=== PATIENT | male | born 1950 | race Hispanic/Latino ===

== ENCOUNTER 2016-12-15 16:49 | Emergency (ER) | payer MEDICARE ==
[2016-12-15 20:23] LABS: Basophils % (Auto) 0.5 % (0.0-1.8); Eosinophils % (Auto) 2.4 % (0.0-4.3); Hematocrit 46.6 % (35.5-45.6); Hemoglobin 14.6 gm/dl (11.8-15.2); Mean Corpuscular HGB Conc 31 % (32-34); Mean Corpuscular Hemoglobin 28 pg (28-32); Mean Corpuscular Volume 90 fl (84-94); Platelet Count 221 K/mm3 (140-440); Red Blood Count 5.16 M/mm3 (3.65-5.03); Red Cell Distribution Width 15.1 % (13.2-15.2); White Blood Count 11.7 K/mm3 (4.5-11.0)
[2016-12-15 20:41] LABS: Alanine Aminotransferase 22 units/L (7-56); Albumin 3.3 g/dL (3.9-5); Albumin/Globulin Ratio 0.8 %; Alkaline Phosphatase 81 units/L (35-129); Anion Gap 14 mmol/L; BUN/Creatinine Ratio 13.33; Bilirubin,Total 0.6 mg/dL (0.1-1.2); Blood Urea Nitrogen 12 mg/dL (9-20); Calcium 9.1 mg/dL (8.4-10.2); Carbon Dioxide 30 mmol/L (22-30); Chloride 100.4 mmol/L (98-107); Glucose 98 mg/dL (75-100); Lipase 27 units/L (13-60); Potassium 4.3 mmol/L (3.6-5.0); Sodium 140 mmol/L (137-145); Total Protein 7.2 g/dL (6.3-8.2)
[2016-12-15 21:07] LABS: Bilirubin,Urine NEG (Negative); Blood,Urine SM (Negative); Ketones,Urine NEG (Negative); Leukocyte Esterase,Urine NEG (Negative); Mucus,Urine FEW /HPF; Nitrite,Urine NEG (Negative); Protein,Urine <15 mg/dL mg/dL (Negative)
--- NOTE | 2016-12-16 04:18 | Emergency Department Report ---
ED Abdominal Pain HPI - General Chief Complaint: Abdominal Pain Stated Complaint: SEVERE ABD PAIN/SOB Time Seen by Provider: 12/16/16 03:58 Source: patient Mode of arrival: Ambulatory Limitations: No Limitations - History of Present Illness Initial Comments: Patient is a 66-year-old male with multiple medical problems presenting to the ER for abdominal pain. Patient reports the pain was sharp, constant, a 10 out of 10, and lasted for 5 hours. Currently patient reports the pain is a 1 out of 10. Otherwise no fevers, chills, MADRIGAL, vomiting, CP, SOB, trauma, travel, or sick, contacts. Pt is eating normally and having BM's. Pt has had a cholecystectomy in the past. MD Complaint: abdominal pain -: Sudden, hour(s) (5) Location: diffuse Radiation: none Migration to: no migration Severity: severe (Now has resolved) Severity scale (0 -10): 0 Quality: aching Consistency: constant Improves With: nothing Worsens With: nothing Associated Symptoms: nausea - Related Data Home Medications Medication Instructions Recorded Confirmed Last Taken Claritin mg PO DAILY 10/25/16 Unknown Cozaar mg PO DAILY 10/25/16 Unknown Omeprazole mg PO DAILY 10/25/16 Unknown traMADol mg PO Q6H PRN 10/25/16 Unknown Previous Rx's Medication Instructions Recorded Last Taken Type Aspirin 81 mg PO QDAY #30 tab.chew 10/25/16 Unknown Rx AtorvaSTATin [Lipitor] 40 mg PO DAILY #30 tablet 10/25/16 Unknown Rx Carvedilol [Coreg] 6.25 mg PO BID #60 tablet 10/25/16 Unknown Rx Allergies Allergy/AdvReac Type Severity Reaction Status Date / Time acetaminophen Allergy Unknown Verified 10/25/16 02:25 doxycycline Allergy Unknown Verified 10/25/16 02:25 ibuprofen Allergy Unknown Verified 12/15/16 19:22 orange juice Allergy Unknown Verified 12/15/16 19:22 peppermint Allergy Unknown Verified 12/15/16 19:22 ED Review of Systems ROS: Stated complaint: SEVERE ABD PAIN/SOB Other details as noted in HPI Comment: All other systems reviewed and negative ED Past Medical Hx - Past Medical History Hx Hypertension: Yes Hx Heart Attack/AMI: Yes (S/P stents x 2) Hx Congestive Heart Failure: No Hx Deep Vein Thrombosis: No Hx Pulmonary Embolism: No Hx Sickle Cell Disease: No Hx Arthritis: No Hx Asthma: Yes Hx COPD: No Hx Tuberculosis: No Hx HIV: No Additional medical history: Cardiac stents X2, morbid obesity - Surgical History Hx Coronary Stent: Yes (X2) Hx Pacemaker: No Hx Internal Defibrillator: No Hx Cholecystectomy: Yes Additional Surgical History: Tonsilectomy, Back Surgery - Social History Smoking Status: Never Smoker - Medications Home Medications: Home Medications Medication Instructions Recorded Confirmed Last Taken Type Aspirin 81 mg PO QDAY #30 tab.chew 10/25/16 Unknown Rx AtorvaSTATin [Lipitor] 40 mg PO DAILY #30 tablet 10/25/16 Unknown Rx Carvedilol [Coreg] 6.25 mg PO BID #60 tablet 10/25/16 Unknown Rx Claritin mg PO DAILY 10/25/16 Unknown History Cozaar mg PO DAILY 10/25/16 Unknown History Omeprazole mg PO DAILY 10/25/16 Unknown History traMADol mg PO Q6H PRN 10/25/16 Unknown History ED Physical Exam - General Limitations: No Limitations, Other (Morbidly obese) General appearance: alert, in no apparent distress - Head Head exam: Present: atraumatic, normocephalic - Eye Eye exam: Present: normal appearance - ENT ENT exam: Present: mucous membranes moist - Neck Neck exam: Present: normal inspection - Respiratory Respiratory exam: Present: normal lung sounds bilaterally. Absent: respiratory distress - Cardiovascular Cardiovascular Exam: Present: regular rate, normal rhythm. Absent: systolic murmur, diastolic murmur, rubs, gallop - GI/Abdominal GI/Abdominal exam: Present: soft, tenderness (mild diffuse), normal bowel sounds. Absent: distended, guarding, rebound, rigid, hyperactive bowel sounds, hypoactive bowel sounds, mass, pulsatile mass, hernia - Rectal Rectal exam: Present: deferred - Extremities Exam Extremities exam: Present: normal inspection - Back Exam Back exam: Present: normal inspection - Neurological Exam Neurological exam: Present: alert, oriented X3 - Psychiatric Psychiatric exam: Present: normal affect, normal mood - Skin Skin exam: Present: warm, dry, intact, normal color. Absent: rash ED Course Vital Signs 12/15/16 12/16/16 19:23 01:35 Temperature 98.3 F 97.9 F Pulse Rate 84 61 Respiratory 18 18 Rate Blood Pressure 184/100 161/92 O2 Sat by Pulse 95 96 Oximetry ED Medical Decision Making - Lab Data Result diagrams: 12/15/16 19:56 04/17/17 19:56 - Medical Decision Making Results discussed with the patient. Pt reports the pain has subsided. I discussed with the patient, given his current state and bloodwork I do not want to CT scan his abdomen at this time. Pt agreed. Instructed the patient to return to the ED if his symptoms return, otherwise follow up with PMD Critical care attestation.: If time is entered above; I have spent that time in minutes in the direct care of this critically ill patient, excluding procedure time. ED Disposition Clinical Impression: Abdominal pain Disposition: DISCHARGED TO HOME OR SELFCARE Is pt being admited?: No Condition: Stable Instructions: Acute Abdominal Pain (ED) Referrals: ELAN HENDRICKSON MD [Primary Care Provider] - 3-5 Days
[2016-12-16 05:26] VITALS: BP 131/75
== END 2016-12-16 05:35 | disposition home or self-care (01) ==
LOC: ED 16:49
DX: R10.84 Generalized abdominal pain (principal); I10 Essential (primary) hypertension; I25.2 Old myocardial infarction; J45.909 Unspecified asthma, uncomplicated; E66.01 Morbid (severe) obesity due to excess calories; Z88.6 Allergy status to analgesic agent; Z88.8 Allergy status to other drugs, medicaments and biological substances; Z79.4 Long term (current) use of insulin; Z91.018 Allergy to other foods
CPT/HCPCS: 36415; 80053; 81001; 83690; 85025; 99283

== ENCOUNTER 2017-06-05 13:18 | Inpatient (IN) | payer MEDICARE ==
[2017-06-05 13:47] LABS: Basophils % (Auto) 0.6 % (0.0-1.8); Eosinophils % (Auto) 1.5 % (0.0-4.3); Hematocrit 39.5 % (35.5-45.6); Hemoglobin 12.7 gm/dl (11.8-15.2); Mean Corpuscular HGB Conc 32 % (32-34); Mean Corpuscular Hemoglobin 29 pg (28-32); Mean Corpuscular Volume 90 fl (84-94); Platelet Count 191 K/mm3 (140-440); Red Blood Count 4.38 M/mm3 (3.65-5.03); Red Cell Distribution Width 14.6 % (13.2-15.2); White Blood Count 10.4 K/mm3 (4.5-11.0)
--- NOTE | 2017-06-05 14:08 | XRay Report ---
AP CHEST: HISTORY: Difficulty in breathing There is poor inspiration. Mild cardiomegaly and central pulmonary venous congestion are suspected which appear to be new since 04/25/17. Small left pleural effusion could be present. Otherwise the lungs are clear. IMPRESSION: Consider mild volume overload.
[2017-06-05 14:10] LABS: Anion Gap 18 mmol/L; BUN/Creatinine Ratio 20; Blood Urea Nitrogen 18 mg/dL (9-20); Calcium 8.9 mg/dL (8.4-10.2); Carbon Dioxide 26 mmol/L (22-30); Chloride 100.6 mmol/L (98-107); Glucose 95 mg/dL (75-100); Potassium 3.8 mmol/L (3.6-5.0); Sodium 141 mmol/L (137-145)
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
[2017-06-05 19:37] LABS: ABG Base Excess 3.1 mmol/L (-2.0-3.0); ABG HCO3 29.4 mmol/L (20.0-26.0); ABG Oxygen Saturation 95.5 % (95.0-99.0); ABG PCO2 51.8 mm Hg; ABG PH 7.372 pH Units (7.350-7.450); ABG PO2 78.3 mm Hg (80.0-90.0)
[2017-06-05 20:05] LABS: Partial Thromboplastin Time 26.4 Sec. (24.2-36.6)
[2017-06-05 20:13] LABS: Albumin 3.6 g/dL (3.9-5); Albumin/Globulin Ratio 1.2 %; Bilirubin,Direct 0.2 mg/dL (0-0.2); Bilirubin,Indirect 1.2 mg/dL; Bilirubin,Total 1.4 mg/dL (0.1-1.2); Total Protein 6.6 g/dL (6.3-8.2)
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
[2017-06-05] MEDS ORDERED: PERCOCET 5/325 PO PRN (21:25)
[2017-06-05] MEDS ORDERED: TYLENOL PO PRN (21:25)
[2017-06-05] MEDS ORDERED: DULCOLAX PR PRN (21:25)
[2017-06-05] MEDS ORDERED: ZOFRAN IV PRN (21:25)
[2017-06-05] MEDS ORDERED: MILK OF MAGNESIA PO PRN (21:25)
[2017-06-05] MEDS ORDERED: MORPHINE IV PRN (21:25)
[2017-06-05] MEDS ORDERED: K-DUR PO ONE (22:22)
[2017-06-05] MEDS ORDERED: LASIX IV ONE (23:00)
[2017-06-05] MEDS: NIZORAL TP SCH (23:45)
[2017-06-05] MEDS: COREG PO SCH (23:45)
[2017-06-06] MEDS ORDERED: DUONEB *Not for PRN Use IH SCH (02:00)
[2017-06-06] MEDS: DUONEB *Not for PRN Use IH SCH ×4 (02:10→20:23)
[2017-06-06 04:37] LABS: Basophils % (Auto) 0.4 % (0.0-1.8); Eosinophils % (Auto) 2.6 % (0.0-4.3); Hematocrit 39.2 % (35.5-45.6); Mean Corpuscular HGB Conc 33 % (32-34); Mean Corpuscular Hemoglobin 30 pg (28-32); Mean Corpuscular Volume 89 fl (84-94); Platelet Count 184 K/mm3 (140-440); Red Blood Count 4.38 M/mm3 (3.65-5.03); Red Cell Distribution Width 14.8 % (13.2-15.2); White Blood Count 8.6 K/mm3 (4.5-11.0)
--- NOTE | 2017-06-06 09:22 | Consultation ---
History of Present Illness Consult date: 06/06/17 Requesting physician: WATSON GARZA Consult reason: shortness of breath Past History Past Medical History: arthritis, CAD, COPD, heart failure, hypertension, hyperlipidemia. denies: dialysis, DVT, ESRD, GERD Past Surgical History: Other (back surgery cervical radiculopathy tonsillectomy.) Social history: , lives with family, smoking, full code. denies: alcohol abuse, prescription drug abuse, IV drug use Family history: hypertension Medications and Allergies Allergies Allergy/AdvReac Type Severity Reaction Status Date / Time acetaminophen Allergy Unknown Verified 04/19/17 13:21 doxycycline Allergy Unknown Verified 04/19/17 13:21 ibuprofen Allergy Unknown Verified 04/19/17 13:21 orange juice Allergy Unknown Verified 04/19/17 13:21 peppermint Allergy Unknown Verified 04/19/17 13:21 scallops Allergy Unknown Verified 04/19/17 13:21 shrimp Allergy Unknown Verified 04/19/17 13:21 Home Medications Medication Instructions Recorded Confirmed Last Taken Type Aspirin 81 mg PO QDAY #30 tab.chew 10/25/16 06/05/17 06/04/17 Rx AtorvaSTATin [Lipitor] 40 mg PO DAILY #30 tablet 10/25/16 06/05/17 06/04/17 Rx Claritin 10 mg PO DAILY 10/25/16 06/05/17 06/04/17 History ALBUTEROL Inhaler [ProAir HFA 2 puff IH Q4H PRN 04/19/17 06/05/17 3 Days Ago History Inhaler] Carvedilol [Coreg] 6.25 mg PO BID #60 tablet 04/27/17 06/05/17 06/04/17 Rx Dexamethasone Sod Phosphate 3 drops OP Q4H 06/05/17 06/05/17 Unknown History [Dexamethasone Sodium Phosphate] Ketoconazole 1 applic TP BID 06/05/17 06/05/17 06/04/17 History Losartan [Cozaar] 50 mg PO QDAY 06/05/17 06/05/17 06/04/17 History Metoprolol [Lopressor] 25 mg PO DAILY 06/05/17 06/05/17 06/04/17 History Omeprazole 20 mg PO DAILY 06/05/17 06/05/17 06/04/17 History Triamcinolone 0.1% [Kenalog 0.1% 1 applic TP TID 06/05/17 06/05/17 06/04/17 History CREAM] amLODIPine [Norvasc] 10 mg PO DAILY 06/05/17 06/05/17 06/04/17 History predniSONE [Deltasone] 10 mg PO QDAY 06/05/17 06/05/17 06/04/17 History traMADol 50 mg PO TID PRN 06/05/17 06/05/17 06/04/17 History Active Meds: Active Medications Acetaminophen (Tylenol) 650 mg PO Q4H PRN PRN Reason: Pain MILD(1-3)/Fever >100.5/MADRIGAL Albuterol/Ipratropium (Duoneb *Not For Prn Use*) 1 ampul IH Q6HRT [facility] Last Admin: 06/06/17 07:14 Dose: 1 ampul Amlodipine Besylate (Norvasc) 10 mg PO DAILY [facility] Aspirin (Baby Aspirin) 81 mg PO QDAY [facility] Atorvastatin Calcium (Lipitor) 40 mg PO DAILY [facility] Bisacodyl (Dulcolax) 10 mg [place] QDAY PRN PRN Reason: Constipation unrelieved by MOM Carvedilol (Coreg) 6.25 mg PO BID [facility] Last Admin: 06/05/17 23:45 Dose: 6.25 mg Enoxaparin Sodium (Lovenox) 40 mg SUB-Q QDAY [facility] Ketoconazole (Nizoral) 1 applic TP BID [facility] Last Admin: 06/05/17 23:45 Dose: Not Given Losartan Potassium (Cozaar) 50 mg PO QDAY [facility] Magnesium Hydroxide (Milk Of Magnesia) 30 ml PO Q4H PRN PRN Reason: Constipation Morphine Sulfate (Morphine) 2 mg IV Q4H PRN PRN Reason: Pain, Moderate (4-6) Ondansetron HCl (Zofran) 4 mg IV Q8H PRN PRN Reason: N/V unrelieved by Reglan Oxycodone/Acetaminophen (Percocet 5/325) 1 tab PO Q6H PRN PRN Reason: Pain, Moderate (4-6) Last Admin: 06/05/17 23:44 Dose: 1 tab Prednisone (Deltasone) 10 mg PO QDAY [facility] Triamcinolone Acetonide (Kenalog) 1 applic TP TID [facility] Physical Examination Vital Signs Temp Pulse Resp BP Pulse Ox 98.7 F 81 18 108/74 95 06/05/17 13:50 06/05/17 13:50 06/05/17 13:50 06/05/17 13:50 06/05/17 13:50 Results 06/06/17 03:34 06/05/17 13:35 CBC 06/06/17 Range/Units 03:34 WBC 8.6 (4.5-11.0) K/mm3 RBC 4.38 (3.65-5.03) M/mm3 Hgb 13.0 (11.8-15.2) gm/dl Hct 39.2 (35.5-45.6) % Plt Count 184 (140-440) K/mm3 Lymph # 1.6 (1.2-5.4) K/mm3 [place] # 0.7 (0.0-0.8) K/mm3 Eos # 0.2 (0.0-0.4) K/mm3 Baso # 0.0 (0.0-0.1) K/mm3 - Imaging and Cardiology Stress echo: other (2014 cardiac pet normal perfusion ef 50%) Echo: report reviewed (2014 normal lv funciton, mild av scelorsis and mild mr) Cardiac cath: report reviewed (2012 lt main patent, lad mid 70%, lcx patent, rca 100%, pci of rca two non sridhar 3.0 x 12 and 3.0 x 22)
[2017-06-06] MEDS: NORVASC PO SCH (09:58)
[2017-06-06] MEDS: LOVENOX SUB-Q SCH (09:58)
[2017-06-06] MEDS: BABY ASPIRIN PO SCH (09:58)
[2017-06-06] MEDS: COZAAR PO SCH (09:58)
[2017-06-06] MEDS: DELTASONE PO SCH (09:59)
[2017-06-06] MEDS: KENALOG TP SCH ×3 (09:59→21:42)
[2017-06-06] MEDS: COREG PO SCH ×2 (09:59→21:41)
--- NOTE | 2017-06-06 10:01 | XRay Report ---
RIGHT TIBIA/FIBULA: History: Pain There is diffuse subcutaneous edema or soft tissue swelling. Normal bone mineralization. No acute osseous findings or joint pathology is detected. IMPRESSION: Soft tissue swelling or edema. No acute bony findings.
[2017-06-06] MEDS: NIZORAL TP SCH ×2 (10:05→21:42)
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
--- NOTE | 2017-06-06 12:03 | Progress Note ---
Assessment and Plan Assessment and plan: Acute on chronic respiratory failure due to COPD exacerbation. Started on Duoneb , Prednisone, supplemental Oxygen. Pulmonology consulted. O2 sat 95% on 3 l/min COPD exacerbation. Steroids, Duoneb Sleep apnea. Pulmonology consulted Hypertension. BP stable on Norvasc, Cozaar and Coreg Hyperlipidemia. On Lipitor Morbid obesity. Counseled on losing weight Full code status History Interval history: shortness of breath, no chest pain Hospitalist Physical - Physical exam Narrative exam: Gen Appearance: Not in acute distress, morbid obesity HEENT: normocephalic, atraumatic Neck: supple, no JVD Lungs: Decreased breath sounds, bilateral rhonchi, no wheezing Heart: S1 and S2 regular, no murmurs, rubs or gallop Abdomen: Soft , non tender, non distended, normal bowel sounds Extremity: No edema, No clubbing or cyanosis Neuro : Awake,alert, oriented x 3, moves all extremities - Constitutional Vitals: Temp Pulse Resp BP Pulse Ox 97.2 F L 60 22 127/75 96 06/06/17 07:33 06/06/17 10:53 06/06/17 10:48 06/06/17 09:59 06/06/17 10:48 General appearance: Present: no acute distress, obese Results - Labs CBC & Chem 7: 06/06/17 03:34 06/05/17 13:35 Labs: Laboratory Last Values WBC 8.6 K/mm3 (4.5-11.0) 06/06/17 03:34 RBC 4.38 M/mm3 (3.65-5.03) 06/06/17 03:34 Hgb 13.0 gm/dl (11.8-15.2) 06/06/17 03:34 Hct 39.2 % (35.5-45.6) 06/06/17 03:34 MCV 89 fl (84-94) 06/06/17 03:34 MCH 30 pg (28-32) 06/06/17 03:34 MCHC 33 % (32-34) 06/06/17 03:34 RDW 14.8 % (13.2-15.2) 06/06/17 03:34 Plt Count 184 K/mm3 (140-440) 06/06/17 03:34 Lymph % (Auto) 18.6 % (13.4-35.0) 06/06/17 03:34 [place] % (Auto) 7.9 % (0.0-7.3) H 06/06/17 03:34 Eos % (Auto) 2.6 % (0.0-4.3) 06/06/17 03:34 Baso % (Auto) 0.4 % (0.0-1.8) 06/06/17 03:34 Lymph # 1.6 K/mm3 (1.2-5.4) 06/06/17 03:34 [place] # 0.7 K/mm3 (0.0-0.8) 06/06/17 03:34 Eos # 0.2 K/mm3 (0.0-0.4) 06/06/17 03:34 Baso # 0.0 K/mm3 (0.0-0.1) 06/06/17 03:34 Seg Neutrophils % 70.5 % (40.0-70.0) H 06/06/17 03:34 Seg Neutrophils # 6.0 K/mm3 (1.8-7.7) 06/06/17 03:34 PT 13.7 Sec. (12.2-14.9) 06/05/17 19:30 INR 1.00 (0.87-1.13) 06/05/17 19:30 APTT 26.4 Sec. (24.2-36.6) 06/05/17 19:30 ABG pH 7.372 pH Units (7.350-7.450) 06/05/17 19:30 ABG pCO2 51.8 mm Hg 06/05/17 19:30 ABG pO2 78.3 mm Hg (80.0-90.0) L 06/05/17 19:30 ABG HCO3 29.4 mmol/L (20.0-26.0) H 06/05/17 19:30 ABG O2 Saturation 95.5 % (95.0-99.0) 06/05/17 19:30 ABG O2 Content 18.5 (0.0-44) 06/05/17 19:30 ABG Base Excess 3.1 mmol/L (-2.0-3.0) H 06/05/17 19:30 ABG Hemoglobin 14.1 gm/dl (14.0-18.0) 06/05/17 19:30 ABG Carboxyhemoglobin 2.2 % (0.0-5.0) 06/05/17 19:30 ABG Methemoglobin 0.3 % (0.0-1.5) 06/05/17 19:30 Oxyhemoglobin 93.1 % (95.0-99.0) L 06/05/17 19:30 FiO2 28 % 06/05/17 19:30 Sodium 141 mmol/L (137-145) 06/05/17 13:35 Potassium 3.8 mmol/L (3.6-5.0) 06/05/17 13:35 Chloride 100.6 mmol/L (98-107) 06/05/17 13:35 Carbon Dioxide 26 mmol/L (22-30) 06/05/17 13:35 Anion Gap 18 mmol/L 06/05/17 13:35 BUN 18 mg/dL (9-20) 06/05/17 13:35 Creatinine 0.9 mg/dL (0.8-1.5) 06/05/17 13:35 Estimated GFR > 60 ml/min 06/05/17 13:35 BUN/Creatinine Ratio 20 % 06/05/17 13:35 Glucose 95 mg/dL (75-100) 06/05/17 13:35 Calcium 8.9 mg/dL (8.4-10.2) 06/05/17 13:35 Total Bilirubin 1.40 mg/dL (0.1-1.2) H 06/05/17 19:30 Direct Bilirubin 0.2 mg/dL (0-0.2) 06/05/17 19:30 Indirect Bilirubin 1.2 mg/dL 06/05/17 19:30 AST 24 units/L (5-40) 06/05/17 19:30 ALT 24 units/L (7-56) 06/05/17 19:30 Alkaline Phosphatase 70 units/L (35-129) 06/05/17 19:30 Troponin T < 0.010 ng/mL (0.00-0.029) 06/05/17 19:30 NT-Pro-B Natriuret Pep 159.3 pg/mL (0-900) 06/05/17 13:35 Total Protein 6.6 g/dL (6.3-8.2) 06/05/17 19:30 Albumin 3.6 g/dL (3.9-5) L 06/05/17 19:30 Albumin/Globulin Ratio 1.2 % 06/05/17 19:30
--- NOTE | 2017-06-06 23:17 | Event Note ---
Date: 06/06/[address] Cueto thank you for asking us to participate in the care of this patient. Full consultation follow. Impression. 1. COPD 2. CAD 3. Hypertension 4. GERD 5. Arthritis. 6. Morbid Obesity 7. Possible sleep apnea. PLAN: 1. O2 3 litres via nasal canula. 2. Albuterol/atrovent aerosol treatments q 6 hours. 3. Continue PO prednisone. 4. Continue S/C Lovenox. 5. Continue CPAP during night time.
[2017-06-07] MEDS: DUONEB *Not for PRN Use IH SCH ×4 (02:16→19:38)
[2017-06-07] MEDS: KENALOG TP SCH ×3 (09:05→20:34)
[2017-06-07] MEDS: NORVASC PO SCH (10:11)
[2017-06-07] MEDS: COZAAR PO SCH (10:11)
[2017-06-07] MEDS: LOVENOX SUB-Q SCH (10:11)
[2017-06-07] MEDS: COREG PO SCH ×2 (10:12→21:35)
[2017-06-07] MEDS: DELTASONE PO SCH (10:12)
[2017-06-07] MEDS: BABY ASPIRIN PO SCH (10:12)
[2017-06-07] MEDS: NIZORAL TP SCH ×2 (10:14→21:37)
--- NOTE | 2017-06-07 10:34 | Progress Note ---
Assessment and Plan - Patient Problems (1) Shortness of breath Current Visit: Yes Status: Acute Plan to address problem: Patient's presentation is consistent with his COPD, obstructive sleep apnea, with symptoms likely exacerbated by noncompliance with his home oxygen therapy. There are no cardiac complaints, and ECG and cardiac enzymes are normal. Subjective Date of service: 06/07/17 Interval history: The patient looks and feels better, no chest pain, shortness of breath is improved. No new cardiac complaints. Objective Vital Signs Temp Pulse Pulse Pulse Resp Resp BP 06/07/17 09:50 59 L 20 06/07/17 09:35 54 L 20 06/07/17 07:28 97.8 F 57 L 18 148/77 06/07/17 04:23 98.1 F 54 L 18 143/71 06/07/17 00:04 98.3 F 53 L 18 106/59 06/06/17 23:33 59 L 06/06/17 23:24 55 L 18 06/06/17 21:41 63 112/51 06/06/17 20:33 63 18 06/06/17 20:23 58 L 18 06/06/17 20:09 98.0 F 63 18 112/51 06/06/17 17:50 98.0 F 06/06/17 17:38 97.7 F 20 06/06/17 17:37 98.0 F 65 20 138/67 06/06/17 13:20 63 18 06/06/17 13:09 62 18 06/06/17 12:26 98.6 F 20 120/68 06/06/17 10:53 60 06/06/17 10:48 60 22 Pulse Ox 06/07/17 09:50 98 06/07/17 09:35 100 06/07/17 07:28 99 06/07/17 04:23 94 06/07/17 00:04 98 06/06/17 23:33 06/06/17 23:24 96 06/06/17 21:41 06/06/17 20:33 06/06/17 20:23 95 06/06/17 20:09 94 06/06/17 17:50 06/06/17 17:38 06/06/17 17:37 95 06/06/17 13:20 06/06/17 13:09 06/06/17 12:26 72 L 06/06/17 10:53 06/06/17 10:48 96 - Physical Examination General: No Apparent Distress HEENT: Positive: PERRL Neck: Positive: neck supple Cardiac: Positive: Reg Rate and Rhythm Lungs: Positive: Decreased Breath Sounds Neuro: Positive: Grossly Intact Abdomen: Positive: Soft Skin: Positive: Clear Extremities: Absent: edema
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
--- NOTE | 2017-06-07 18:52 | Progress Note ---
Assessment and Plan Patient alert, awake and sitting in the chair. On 2 litres O2.O2 saturation 98% .Patient said slept well with CPAP last night. - Patient Problems (1) Hypercapnic respiratory failure Current Visit: Yes Status: Acute Qualifiers: Chronicity: acute on chronic Qualified Code(s): J96.22 - Acute and chronic respiratory failure with hypercapnia Plan to address problem: O2 2 litres via nasal canula. Albuterol/atrovent aerosol treatments q 6 hours Continue PO prednisone. Continue S/C Lovenox. CPAP during night time. (2) Morbid obesity Current Visit: No Status: Acute Plan to address problem: Weight reduction diet and exercise. (3) Sleep apnea syndrome Current Visit: No Status: Acute Qualifiers: Sleep apnea type: S Plan to address problem: Continue CPAP during sleep. Subjective Date of service: 06/07/17 Interval history: Patient alert, awake and sitting in the chair. On 2 litres O2.O2 saturation 98% .Patient said slept well with CPAP last night. Objective Vital Signs - 12hr 06/07/17 06/07/17 06/07/17 07:28 09:35 09:50 Temperature 97.8 F Pulse Rate 57 L Pulse Rate [ 54 L 59 L Anterior Bilateral Throughout] Respiratory 18 Rate Respiratory 20 20 Rate [Anterior Bilateral Throughout] Blood Pressure 148/77 O2 Sat by Pulse 99 100 98 Oximetry 06/07/17 06/07/17 06/07/17 14:13 15:18 15:36 Temperature Pulse Rate 63 Pulse Rate [ 57 L 59 L Anterior Bilateral Throughout] Respiratory Rate Respiratory 20 20 Rate [Anterior Bilateral Throughout] Blood Pressure O2 Sat by Pulse Oximetry Constitutional: no acute distress, alert, other ([place]bid[place] Obese.) Eyes: non-icteric Neck: supple, no lymphadenopathy Ascultation: Bilateral: diminished breath sounds Cardiovascular: regular rate and rhythm Gastrointestinal: normoactive bowel sounds, soft, non-tender Integumentary: normal Extremities: no cyanosis, no edema Neurologic: normal mental status, non-focal exam, pupils equal and round, CN II- XII normal Psychiatric: mood appropriate CBC and BMP: 06/06/17 03:34 06/05/17 13:35 ABG, PT/INR, D-dimer: ABG ABG pH 7.372 pH Units (7.350-7.450) 06/05/17 19:30 ABG pCO2 51.8 mm Hg 06/05/17 19:30 ABG pO2 78.3 mm Hg (80.0-90.0) L 06/05/17 19:30 ABG O2 Saturation 95.5 % (95.0-99.0) 06/05/17 19:30 PT/INR, D-dimer PT 13.7 Sec. (12.2-14.9) 06/05/17 19:30 INR 1.00 (0.87-1.13) 06/05/17 19:30 Abnormal lab findings: Abnormal Labs 06/06/17 03:34 [place] % (Auto) 7.9 H Seg Neutrophils % 70.5 H Chest x-ray: report reviewed (Mild volume Overload.)
[2017-06-08] MEDS: DUONEB *Not for PRN Use IH SCH ×2 (01:58→07:57)
--- NOTE | 2017-06-08 09:33 | Progress Note ---
Assessment and Plan Shortness of breath secondary to noncompliance with home oxygen COPD Obstructive sleep apnea Hypertension Hx of CAD no ischemia no MPI 10/2016 EF 50-55% on echo 03/2017 Obesity Continue medical therapy for coronary artery disease. Otherwise, conservative cardiac management. Subjective Date of service: 06/08/17 Interval history: Patient reports his breathing is better. Objective Vital Signs Temp Pulse Pulse Resp Resp BP Pulse Ox 06/08/17 04:30 98.3 F 61 18 125/64 96 06/07/17 23:21 98.3 F 54 L 18 114/61 91 06/07/17 20:05 61 06/07/17 19:40 62 18 06/07/17 19:38 98 06/07/17 19:30 59 L 18 06/07/17 19:15 98.0 F 61 18 112/55 98 06/07/17 15:36 59 L 20 06/07/17 15:18 57 L 20 06/07/17 14:13 63 06/07/17 13:38 98.6 F 58 L 15 101/54 93 06/07/17 09:50 59 L 20 98 06/07/17 09:35 54 L 20 100 - Physical Examination General: No Apparent Distress HEENT: Positive: PERRL Cardiac: Positive: Reg Rate and Rhythm Lungs: Positive: Decreased Breath Sounds Neuro: Positive: Grossly Intact
[2017-06-08 09:41] VITALS: BP 107/57
[2017-06-08] MEDS: LOVENOX SUB-Q SCH (09:41)
[2017-06-08] MEDS: NORVASC PO SCH (09:42)
[2017-06-08] MEDS: DELTASONE PO SCH (09:42)
[2017-06-08] MEDS: BABY ASPIRIN PO SCH (09:42)
[2017-06-08] MEDS: COZAAR PO SCH (09:43)
[2017-06-08] MEDS: KENALOG TP SCH (09:44)
[2017-06-08] MEDS: NIZORAL TP SCH (09:44)
[2017-06-08] MEDS: COREG PO SCH (09:46)
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
== END 2017-06-08 13:23 | disposition home or self-care (01) | DRG 189 ==
LOC: ED 13:18 → 4A 21:26
PROVIDERS: ADMIT Internal Medicine; ATTEND Internal Medicine
PROC: 4A033R1 Measurement of Arterial Saturation, Peripheral, Percutaneous Approach (ICD-10-PCS; principal; 2017-06-06)
PROC: 5A09357 Assistance with Respiratory Ventilation, Less than 24 Consecutive Hours, Continuous Positive Airway Pressure (ICD-10-PCS; 2017-06-06)
DX: J96.22 Acute and chronic respiratory failure with hypercapnia (principal); J44.1 Chronic obstructive pulmonary disease with (acute) exacerbation; K86.1 Other chronic pancreatitis; Z68.43 Body mass index [BMI] 50.0-59.9, adult; S80.11XA Contusion of right lower leg, initial encounter; K21.9 Gastro-esophageal reflux disease without esophagitis; M19.90 Unspecified osteoarthritis, unspecified site; L40.9 Psoriasis, unspecified; I11.0 Hypertensive heart disease with heart failure; I50.9 Heart failure, unspecified; E78.5 Hyperlipidemia, unspecified; X58.XXXA Exposure to other specified factors, initial encounter; G47.33 Obstructive sleep apnea (adult) (pediatric); J96.01 Acute respiratory failure with hypoxia; I25.10 Atherosclerotic heart disease of native coronary artery without angina pectoris; E66.01 Morbid (severe) obesity due to excess calories; Z99.81 Dependence on supplemental oxygen; Z79.51 Long term (current) use of inhaled steroids; Z79.899 Other long term (current) drug therapy; Z88.1 Allergy status to other antibiotic agents; Z88.8 Allergy status to other drugs, medicaments and biological substances; Z91.018 Allergy to other foods; I25.2 Old myocardial infarction; Z95.5 Presence of coronary angioplasty implant and graft; Z90.49 Acquired absence of other specified parts of digestive tract; Z79.82 Long term (current) use of aspirin; Z82.49 Family history of ischemic heart disease and other diseases of the circulatory system; Y93.89 Activity, other specified; Y92.89 Other specified places as the place of occurrence of the external cause; Y99.8 Other external cause status
CPT/HCPCS: 36415; 71010; 80048; 80074; 82803; 83880; 84484; 85025; 85610; 85730; 93005; 93010; 94640; 94660; 94760; A9270-GY; J1650; J1940; J7512

== ENCOUNTER 2017-06-29 16:21 | Inpatient (IN) | payer MEDICARE ==
[2017-06-29] MEDS ORDERED: NACL 0.9% 1000 ML 1,000 ML IV ONE (16:31)
[2017-06-29 16:57] LABS: Basophils % (Auto) 0.8 % (0.0-1.8); Eosinophils % (Auto) 0.8 % (0.0-4.3); Hematocrit 37.7 % (35.5-45.6); Hemoglobin 12.6 gm/dl (11.8-15.2); Mean Corpuscular HGB Conc 33 % (32-34); Mean Corpuscular Hemoglobin 30 pg (28-32); Mean Corpuscular Volume 91 fl (84-94); Platelet Count 209 K/mm3 (140-440); Red Blood Count 4.16 M/mm3 (3.65-5.03); Red Cell Distribution Width 14.3 % (13.2-15.2); White Blood Count 9.4 K/mm3 (4.5-11.0)
[2017-06-29 17:08] LABS: INR 1.02 (0.87-1.13); Partial Thromboplastin Time 26.3 Sec. (24.2-36.6)
[2017-06-29 17:12] LABS: Alanine Aminotransferase 23 units/L (7-56); Albumin 3.7 g/dL (3.9-5); Albumin/Globulin Ratio 1.3 %; Alkaline Phosphatase 131 units/L (35-129); Anion Gap 15 mmol/L; BUN/Creatinine Ratio 18; Blood Urea Nitrogen 16 mg/dL (9-20); Calcium 8.6 mg/dL (8.4-10.2); Carbon Dioxide 27 mmol/L (22-30); Chloride 102.3 mmol/L (98-107); Glucose 104 mg/dL (75-100); Lipase 30 units/L (13-60); Sodium 140 mmol/L (137-145); Total Protein 6.5 g/dL (6.3-8.2)
--- NOTE | 2017-06-29 19:07 | Emergency Department Report ---
ED GI Bleed HPI - General Chief complaint: GI Bleed Stated complaint: RECTAL BLEED Time Seen by Provider: 06/29/17 16:42 Source: patient Mode of arrival: Ambulatory Limitations: No Limitations - History of Present Illness Initial comments: Patient is a 66-year-old male with history of COPD on prednisone 10 mg daily came today with 1 episode of loss of hematochezia this morning. Patient stated that he did not have any nausea or vomiting he does have a left lower quadrant pain and tenderness. No fever no other complaint at this moment MD complaint: gross hematochezia Location: LLQ Severity scale (0 -10): 6 - Related Data Home Medications Medication Instructions Recorded Confirmed Last Taken Loratadine [Claritin] 10 mg PO DAILY #0 10/25/16 06/29/17 06/29/17 ALBUTEROL Inhaler [ProAir HFA 2 puff IH Q4H PRN 04/19/17 06/29/17 06/29/17 Inhaler] Dexamethasone Sod Phosphate 3 drops OP Q4H 06/05/17 06/29/17 06/29/17 [Dexamethasone Sodium Phosphate 0.1%] Ketoconazole 1 applic TP BID 06/05/17 06/29/17 06/29/17 Losartan [Cozaar] 50 mg PO QDAY 06/05/17 06/29/17 06/29/17 Metoprolol [Lopressor TAB] 25 mg PO DAILY 06/05/17 06/29/17 06/29/17 Omeprazole 20 mg PO DAILY 06/05/17 06/29/17 06/29/17 Triamcinolone 0.1% [Kenalog 0.1% 1 applic TP TID 06/05/17 06/29/17 06/29/17 CREAM] amLODIPine [Norvasc] 10 mg PO DAILY 06/05/17 06/29/17 06/29/17 predniSONE [Deltasone] 10 mg PO QDAY 06/05/17 06/29/17 06/29/17 traMADol [Ultram 50 MG tab] 50 mg PO TID PRN #0 06/05/17 06/29/17 06/29/17 ISOSORBIDE MONOnitrate [Imdur ER] 30 mg PO QDAY 06/29/17 06/29/17 06/29/17 Previous Rx's Medication Instructions Recorded Last Taken Type Aspirin 81 mg PO QDAY #30 tab.chew 10/25/16 06/29/17 Rx AtorvaSTATin [Lipitor] 40 mg PO DAILY #30 tablet 10/25/16 06/29/17 Rx Carvedilol [Coreg] 6.25 mg PO BID #60 tablet 04/27/17 06/29/17 Rx Allergies Allergy/AdvReac Type Severity Reaction Status Date / Time acetaminophen Allergy Unknown Verified 04/19/17 13:21 doxycycline Allergy Unknown Verified 04/19/17 13:21 ibuprofen Allergy Unknown Verified 04/19/17 13:21 orange juice Allergy Unknown Verified 04/19/17 13:21 peppermint Allergy Unknown Verified 04/19/17 13:21 scallops Allergy Unknown Verified 04/19/17 13:21 shrimp Allergy Unknown Verified 04/19/17 13:21 ED Review of Systems ROS: Stated complaint: RECTAL BLEED Other details as noted in HPI Comment: All other systems reviewed and negative Constitutional: denies: chills, diaphoresis, fever Respiratory: denies: cough, orthopnea, shortness of breath, SOB with exertion, SOB at rest Cardiovascular: denies: chest pain, palpitations, dyspnea on exertion Gastrointestinal: abdominal pain, hematochezia. denies: nausea, vomiting, diarrhea, constipation, hematemesis, melena Musculoskeletal: denies: back pain Neurological: denies: headache, weakness, numbness, paresthesias ED Past Medical Hx - Past Medical History Hx Hypertension: Yes Hx Heart Attack/AMI: Yes (s/p stents x2) Hx Deep Vein Thrombosis: No Hx GERD: Yes Hx Liver Disease: Yes Hx Arthritis: Yes Hx Asthma: Yes Hx COPD: Yes Hx HIV: No Additional medical history: Cardiac stents X2, morbid obesity. CAD. PSORIASIS. DERMATITIS. CERVICAL RADICULOPATHY, tendonitis. BONE SPURS. ACUTE PANCREATITIS - Surgical History Hx Coronary Stent: Yes Hx Pacemaker: No Hx Internal Defibrillator: No Hx Cholecystectomy: Yes Additional Surgical History: Tonsillectomy, Back Surgery - Social History Smoking Status: Never Smoker Substance Use Type: None - Medications Home Medications: Home Medications Medication Instructions Recorded Confirmed Last Taken Type Aspirin 81 mg PO QDAY #30 tab.chew 10/25/16 06/29/17 06/29/17 Rx AtorvaSTATin [Lipitor] 40 mg PO DAILY #30 tablet 10/25/16 06/29/17 06/29/17 Rx Loratadine [Claritin] 10 mg PO DAILY #0 10/25/16 06/29/17 06/29/17 History ALBUTEROL Inhaler [ProAir HFA 2 puff IH Q4H PRN 04/19/17 06/29/17 06/29/17 History Inhaler] Carvedilol [Coreg] 6.25 mg PO BID #60 tablet 04/27/17 06/29/17 06/29/17 Rx Dexamethasone Sod Phosphate 3 drops OP Q4H 06/05/17 06/29/17 06/29/17 History [Dexamethasone Sodium Phosphate 0.1%] Ketoconazole 1 applic TP BID 06/05/17 06/29/17 06/29/17 History Losartan [Cozaar] 50 mg PO QDAY 06/05/17 06/29/17 06/29/17 History Metoprolol [Lopressor TAB] 25 mg PO DAILY 06/05/17 06/29/17 06/29/17 History Omeprazole 20 mg PO DAILY 06/05/17 06/29/17 06/29/17 History Triamcinolone 0.1% [Kenalog 0.1% 1 applic TP TID 06/05/17 06/29/17 06/29/17 History CREAM] amLODIPine [Norvasc] 10 mg PO DAILY 06/05/17 06/29/17 06/29/17 History predniSONE [Deltasone] 10 mg PO QDAY 06/05/17 06/29/17 06/29/17 History traMADol [Ultram 50 MG tab] 50 mg PO TID PRN #0 06/05/17 06/29/17 06/29/17 History ISOSORBIDE MONOnitrate [Imdur ER] 30 mg PO QDAY 06/29/17 06/29/17 06/29/17 History ED Physical Exam - General Limitations: No Limitations General appearance: alert, in no apparent distress - Eye Eye exam: Present: normal appearance - ENT ENT exam: Present: normal exam - Neck Neck exam: Present: normal inspection. Absent: tenderness, meningismus - Respiratory Respiratory exam: Present: normal lung sounds bilaterally. Absent: respiratory distress, wheezes, rales, rhonchi, chest wall tenderness, decreased breath sounds, prolonged expiratory - Cardiovascular Cardiovascular Exam: Present: regular rate, normal rhythm, normal heart sounds - GI/Abdominal GI/Abdominal exam: Present: soft, tenderness (left lower quadrant), normal bowel sounds. Absent: distended, guarding, rebound, rigid, mass, bruit, pulsatile mass, hernia - Rectal Rectal exam: Present: normal rectal tone, heme (+) stool, black stool. Absent: bloody stool, fecal impaction, hemorrhoids, mass, tenderness - Extremities Exam Extremities exam: Present: normal inspection, full ROM, normal capillary refill - Back Exam Back exam: Present: normal inspection, full ROM. Absent: tenderness, CVA tenderness (R), CVA tenderness (L) - Neurological Exam Neurological exam: Present: alert, oriented X3, CN II-XII intact, normal gait. Absent: motor sensory deficit - Skin Skin exam: Present: warm, intact ED Course Vital Signs 06/29/17 06/29/17 06/29/17 16:27 17:18 17:23 Temperature 97.1 F L Pulse Rate 70 Respiratory 16 18 18 Rate Blood Pressure 129/54 Blood Pressure 127/84 [Right] O2 Sat by Pulse 97 96 97 Oximetry - Reevaluation(s) Reevaluation #1: 06/29/17 21:29 Patient denied any further bloody diarrhea. Remain stable. ED Medical Decision Making - Lab Data Result diagrams: 06/29/17 16:36 06/29/17 16:36 - EKG Data -: EKG Interpreted by Ok EKG shows normal: sinus rhythm - EKG Data Interpretation: no acute changes - Radiology Data Radiology results: report reviewed CT abdomen and pelvis unremarkable for acute finding - Medical Decision Making Discussed with Dr. Cueto for admission Critical care attestation.: If time is entered above; I have spent that time in minutes in the direct care of this critically ill patient, excluding procedure time. ED Disposition Clinical Impression: GI bleed, Abdominal pain Disposition: DC-[id number] OP ADMIT IP TO THIS HOSP Is pt being admited?: Yes Condition: Stable Referrals: ELAN HENDRICKSON MD [Primary Care Provider] - 3-5 Days Forms: Accompanied Note
--- NOTE | 2017-06-29 21:26 | Cat Scan Report ---
FINAL REPORT EXAM: CT ABDOMEN PELVIS W CON HISTORY: abdominal pain.LLQ PAIN, HEMATOCHEZIA TECHNIQUE: CT abdomen and pelvis with intravenous contrast PRIORS: None. FINDINGS: No acute abnormality identified in the lung bases. No focal abnormality identified within the liver parenchyma. Patient status post cholecystectomy. The spleen demonstrates normal size and attenuation. No pancreatic abnormalities seen. The kidneys demonstrate symmetric contrast enhancement. Small low-density focus right kidney noted most consistent with cysts. No evidence of hydronephrosis. The adrenal glands are unremarkable Abdominal aorta is normal in caliber. No pathologically enlarged lymph nodes are identified. No signs of free fluid or free air No evidence of small bowel dilatation. Colon is nondistended. No pericolonic inflammatory change. Urinary bladder is unremarkable. IMPRESSION: Negative. No acute abnormalities seen
[2017-06-29 21:49] LABS: Hematocrit 37.6 % (35.5-45.6); Hemoglobin 12.2 gm/dl (11.8-15.2)
--- NOTE | 2017-06-29 21:59 | History and Physical Report ---
History of Present Illness Date of examination: 06/29/17 Date of admission: 06/29/17 Chief complaint: Bright red blood per rectum History of present illness: Patient is 66-year-old with hypertension, coronary artery disease, status post stents, chronic respiratory failure, on home vent at night, COPD, sleep apnea. He presents with one episode of bright red blood per rectum. Patient states he was in his usual state of health when he had a bowel movement and had bright red blood mixed with stool. This happened just once in morning .He denies any nausea or vomiting. He complains of vague abdominal pain 6 out of 10 mid abdomen, with no radiation. This pain is now resolved. He denies any fever. In Emergency Department, initial hemoglobin is 12.6 He has been on Aspirin for coronary artery disease. This has been discontinued and patient will be admitted for further evaluation. Past History Past Medical History: acute [place], CAD, COPD, GERD, hypertension, other (chronic resp failure, sleep apnea on home ventilator at night,psoriasis,) Past Surgical History: cholecystectomy, cataract removal, tonsillectomy Social history: single, full code. denies: smoking, alcohol abuse, IV drug use Family history: CAD, cancer Medications and Allergies Allergies Allergy/AdvReac Type Severity Reaction Status Date / Time acetaminophen Allergy Unknown Verified 04/19/17 13:21 doxycycline Allergy Unknown Verified 04/19/17 13:21 ibuprofen Allergy Unknown Verified 04/19/17 13:21 orange juice Allergy Unknown Verified 04/19/17 13:21 peppermint Allergy Unknown Verified 04/19/17 13:21 scallops Allergy Unknown Verified 04/19/17 13:21 shrimp Allergy Unknown Verified 04/19/17 13:21 Home Medications Medication Instructions Recorded Confirmed Last Taken Type Aspirin 81 mg PO QDAY #30 tab.chew 10/25/16 06/29/17 06/29/17 Rx AtorvaSTATin [Lipitor] 40 mg PO DAILY #30 tablet 10/25/16 06/29/17 06/29/17 Rx Loratadine [Claritin] 10 mg PO DAILY #0 10/25/16 06/29/17 06/29/17 History ALBUTEROL Inhaler [ProAir HFA 2 puff IH Q4H PRN 04/19/17 06/29/17 06/29/17 History Inhaler] Carvedilol [Coreg] 6.25 mg PO BID #60 tablet 04/27/17 06/29/17 06/29/17 Rx Dexamethasone Sod Phosphate 3 drops OP Q4H 06/05/17 06/29/17 06/29/17 History [Dexamethasone Sodium Phosphate 0.1%] Ketoconazole 1 applic TP BID 06/05/17 06/29/17 06/29/17 History Losartan [Cozaar] 50 mg PO QDAY 06/05/17 06/29/17 06/29/17 History Metoprolol [Lopressor TAB] 25 mg PO DAILY 06/05/17 06/29/17 06/29/17 History Omeprazole 20 mg PO DAILY 06/05/17 06/29/17 06/29/17 History Triamcinolone 0.1% [Kenalog 0.1% 1 applic TP TID 06/05/17 06/29/17 06/29/17 History CREAM] amLODIPine [Norvasc] 10 mg PO DAILY 06/05/17 06/29/17 06/29/17 History predniSONE [Deltasone] 10 mg PO QDAY 06/05/17 06/29/17 06/29/17 History traMADol [Ultram 50 MG tab] 50 mg PO TID PRN #0 06/05/17 06/29/17 06/29/17 History ISOSORBIDE MONOnitrate [Imdur ER] 30 mg PO QDAY 06/29/17 06/29/17 06/29/17 History Review of Systems All systems: negative (No fever, no headache, no syncope. All other systems reviewed and are negative) Exam - Physical Exam Narrative exam: Gen Appearance: Not in acute distress, morbidly obese HEENT: normocephalic, atraumatic Neck: supple, no JVD Lungs: Decreased breath sounds bilaterally, no rales, no wheezing, Heart: S1 and S2 regular, no murmurs,no rubs or gallop, Abdomen: Soft , non tender, non distended, normal bowel sounds Extremity: No edema, no clubbing or cyanosis, Neuro : Awake,alert, oriented x 3, normal speech, moves all extremities Psych: Normal mood Skin: thick scaly rash both legs - Constitutional Vitals: Temp Pulse Resp BP Pulse Ox 97.1 F L 70 18 127/84 97 06/29/17 16:27 06/29/17 16:27 06/29/17 17:23 06/29/17 17:23 06/29/17 17:23 Results - Labs CBC & Chem 7: 06/29/17 21:32 06/29/17 16:36 Labs: Abnormal lab results 06/29/17 06/29/17 Range/Units 16:36 16:36 Seg Neutrophils % 73.4 H (40.0-70.0) % Glucose 104 H (75-100) mg/dL Alkaline Phosphatase 131 H (35-129) units/L Albumin 3.7 L (3.9-5) g/dL Assessment and Plan Acute GI bleed with bright red blood per rectum 1 episode. Admit to medical/ surgical floor. Initial hemoglobin was 12.6 and repeat hemoglobin stable at 12.2. Continue H&H every 6 hours. Will keep nothing by mouth. Start IV fluids. Start protonix iv. CT Abdomen was unremarkable. Consult GI physician on- call. Coronary artery disease status post cornary stent placement. He is currently stable. No chest pain. Hold aspirin because of acute GI bleed. COPD. This is stable, no acute exacerbation of shortness of breath. Chronic respiratory failure. Patient states he is on a ventilator at home at night. Also has home Oxygen for use when needed.Consult respiratory therapist. Sleep apnea. says he uses home Triology ventilator at night. hypertension. Blood pressure controlled. Resume home meds. Psoriasis. Continue prednisone. GERD. Start Protonix iv Morbid obesity. I counsekled him on losing weight. DVT prophylaxis with SCDs only. No anticoagulation because of GI bleed Full CODE STATUS
[2017-06-29] MEDS ORDERED: TYLENOL PO PRN (22:20)
[2017-06-29] MEDS ORDERED: DULCOLAX PR PRN (22:20)
[2017-06-29] MEDS ORDERED: ZOFRAN IV PRN (22:20)
[2017-06-29] MEDS ORDERED: MILK OF MAGNESIA PO PRN (22:20)
[2017-06-29] MEDS ORDERED: MORPHINE IV PRN (22:20)
[2017-06-30] MEDS: D5/0.45NS 1,000 ML IV SCH ×2 (00:09→19:05)
[2017-06-30] MEDS: PROTONIX IV SCH ×2 (00:17→09:15)
[2017-06-30] MEDS ORDERED: ULTRAM PO PRN (01:02)
[2017-06-30] MEDS ORDERED: PROAIR IH PRN (01:02)
[2017-06-30] MEDS ORDERED: DEXAMETHASONE SODIUM PHOSPHATE OP SCH (01:15)
[2017-06-30] MEDS ORDERED: PROVENTIL IH PRN (01:24)
[2017-06-30] MEDS: DUONEB *Not for PRN Use IH SCH ×4 (02:12→19:54)
[2017-06-30 04:08] LABS: Basophils % (Auto) 2.1 % (0.0-1.8); Eosinophils % (Auto) 2.7 % (0.0-4.3); Hematocrit 37.6 % (35.5-45.6); Hemoglobin 12.1 gm/dl (11.8-15.2); Mean Corpuscular HGB Conc 32 % (32-34); Mean Corpuscular Hemoglobin 29 pg (28-32); Mean Corpuscular Volume 91 fl (84-94); Platelet Count 212 K/mm3 (140-440); Red Blood Count 4.15 M/mm3 (3.65-5.03); Red Cell Distribution Width 14.9 % (13.2-15.2); White Blood Count 8.5 K/mm3 (4.5-11.0)
[2017-06-30 04:12] LABS: Anion Gap 13 mmol/L; BUN/Creatinine Ratio 16; Blood Urea Nitrogen 11 mg/dL (9-20); Calcium 8.2 mg/dL (8.4-10.2); Carbon Dioxide 29 mmol/L (22-30); Chloride 104.2 mmol/L (98-107); Glucose 88 mg/dL (75-100); Potassium 3.7 mmol/L (3.6-5.0); Sodium 142 mmol/L (137-145)
[2017-06-30] MEDS: KENALOG TP SCH ×2 (08:34→14:44)
[2017-06-30] MEDS: NIZORAL TP SCH (09:20)
[2017-06-30] MEDS: CLARITIN PO SCH (10:00)
[2017-06-30] MEDS: LOPRESSOR PO SCH (10:00)
[2017-06-30] MEDS: COZAAR PO SCH (10:00)
[2017-06-30] MEDS: IMDUR PO SCH (10:00)
[2017-06-30] MEDS: DELTASONE PO SCH (10:00)
[2017-06-30] MEDS: NORVASC PO SCH (10:00)
[2017-06-30 16:30] LABS: Hematocrit 40.1 % (35.5-45.6); Hemoglobin 12.9 gm/dl (11.8-15.2)
--- NOTE | 2017-06-30 17:57 | Progress Note ---
Assessment and Plan Assessment and plan: Patient is 66-year-old with hypertension, coronary artery disease, status post stents, chronic respiratory failure, on home vent at night, COPD, sleep apnea. He presents with one episode of bright red blood per rectum. Patient states he was in his usual state of health when he had a bowel movement and had bright red blood mixed with stool. This happened just once in morning .He denies any nausea or vomiting. He complains of vague abdominal pain 6 out of 10 mid abdomen, with no radiation. This pain is now resolved. He denies any fever. In Emergency Department, initial hemoglobin is 12.6 He has been on Aspirin for coronary artery disease. This has been discontinued and patient will be admitted for further evaluation. Acute GI bleed with bright red blood per rectum 1 episode. * await GI input. no further bleeding noted. will discontinue IV fluids in setting of chronic lymphedema. Initial hemoglobin was 12.6 and repeat hemoglobin stable at 12.2. Coronary artery disease status post cornary stent placement. * He is currently stable. No chest pain. Hold aspirin because of acute GI bleed. COPD. This is stable, no acute exacerbation of shortness of breath. Chronic respiratory failure. Patient states he is on a biapa at home at night. Also has home Oxygen for use when needed.Consult respiratory therapist. Sleep apnea. says he uses home Triology ventilator at night. hypertension. Blood pressure controlled. Resume home meds. Psoriasis. Continue prednisone. GERD. Start Protonix iv Morbid obesity. I counseled him on losing weight. DVT prophylaxis with SCDs only. No anticoagulation because of GI bleed Full CODE STATUS Plan discussed with the patient History Interval history: Patient seen and examined in no acute distress. sitting up in a chair by the side of the bed. very jovial about his medical condition. Hospitalist Physical - Physical exam Narrative exam: VITAL SIGNS: Reviewed. GENERAL: The patient appeared well nourished and normally developed. A morbidly obese Vital signs as documented. HEAD: No signs of head trauma. EYES: Pupils are equal. Extraocular motions intact. EARS: Hearing grossly intact. MOUTH: Oropharynx is normal. NECK: No adenopathy, no JVD. CHEST: Chest with clear breath sounds bilaterally. No wheezes, rales, or rhonchi. CARDIAC: Regular rate and rhythm. S1 and S2, without murmurs, gallops, or rubs. VASCULAR: +1 pitting edema chronically. Peripheral pulses normal and equal in all extremities. ABDOMEN: Soft, without detectable tenderness. No sign of distention. No rebound or guarding, and no masses palpated. Bowel Sounds normal. MUSCULOSKELETAL: Good range of motion of all major joints. Extremities without clubbing, cyanosis bilaterally plus edema. NEUROLOGIC EXAM: Alert and oriented x 3. No focal sensory or strength deficits. Speech normal. Follows commands. PSYCHIATRIC: Mood normal. SKIN: No rash or lesions. - Constitutional Vitals: Temp Pulse Resp BP Pulse Ox 98.2 F 63 20 134/77 100 06/30/17 12:35 06/30/17 12:35 06/30/17 12:35 06/30/17 12:35 06/30/17 12:35 Results - Labs CBC & Chem 7: 07/01/17 05:28 07/01/17 05:28 Labs: Laboratory Last Values WBC 8.5 K/mm3 (4.5-11.0) 06/30/17 03:34 RBC 4.15 M/mm3 (3.65-5.03) 06/30/17 03:34 Hgb 12.9 gm/dl (11.8-15.2) 06/30/17 16:10 Hct 40.1 % (35.5-45.6) 06/30/17 16:10 MCV 91 fl (84-94) 06/30/17 03:34 MCH 29 pg (28-32) 06/30/17 03:34 MCHC 32 % (32-34) 06/30/17 03:34 RDW 14.9 % (13.2-15.2) 06/30/17 03:34 Plt Count 212 K/mm3 (140-440) 06/30/17 03:34 Lymph % (Auto) 31.4 % (13.4-35.0) 06/30/17 03:34 Young % (Auto) 6.4 % (0.0-7.3) 06/30/17 03:34 Eos % (Auto) 2.7 % (0.0-4.3) 06/30/17 03:34 Baso % (Auto) 2.1 % (0.0-1.8) H 06/30/17 03:34 Lymph # 2.7 K/mm3 (1.2-5.4) 06/30/17 03:34 Young # 0.5 K/mm3 (0.0-0.8) 06/30/17 03:34 Eos # 0.2 K/mm3 (0.0-0.4) 06/30/17 03:34 Baso # 0.2 K/mm3 (0.0-0.1) H 06/30/17 03:34 Seg Neutrophils % 57.4 % (40.0-70.0) 06/30/17 03:34 Seg Neutrophils # 4.9 K/mm3 (1.8-7.7) 06/30/17 03:34 PT 13.9 Sec. (12.2-14.9) 06/29/17 16:36 INR 1.02 (0.87-1.13) 06/29/17 16:36 APTT 26.3 Sec. (24.2-36.6) 06/29/17 16:36 Sodium 142 mmol/L (137-145) 06/30/17 03:34 Potassium 3.7 mmol/L (3.6-5.0) 06/30/17 03:34 Chloride 104.2 mmol/L (98-107) 06/30/17 03:34 Carbon Dioxide 29 mmol/L (22-30) 06/30/17 03:34 Anion Gap 13 mmol/L 06/30/17 03:34 BUN 11 mg/dL (9-20) 06/30/17 03:34 Creatinine 0.7 mg/dL (0.8-1.5) L 06/30/17 03:34 Estimated GFR > 60 ml/min 06/30/17 03:34 BUN/Creatinine Ratio 16 % 06/30/17 03:34 Glucose 88 mg/dL (75-100) 06/30/17 03:34 Calcium 8.2 mg/dL (8.4-10.2) L 06/30/17 03:34 Total Bilirubin 0.50 mg/dL (0.1-1.2) 06/29/17 16:36 AST 21 units/L (5-40) 06/29/17 16:36 ALT 23 units/L (7-56) 06/29/17 16:36 Alkaline Phosphatase 131 units/L (35-129) H 06/29/17 16:36 Total Protein 6.5 g/dL (6.3-8.2) 06/29/17 16:36 Albumin 3.7 g/dL (3.9-5) L 06/29/17 16:36 Albumin/Globulin Ratio 1.3 % 06/29/17 16:36 Lipase 30 units/L (13-60) 06/29/17 16:36 Blood Type AB NEGATIVE 06/29/17 16:36 Antibody Screen Negative 06/29/17 16:36 - Imaging and Cardiology CT scan - abdomen: image reviewed (unremarkable)
--- NOTE | 2017-06-30 19:04 | Gastroenterology Consultation ---
History of Present Illness - Reason for Consult Consult date: 06/30/17 Rectal Bleeding Requesting physician: BERNIE BAILEY - History of Present Illness The patient is a 66 yo male due for an initial colonoscopy, but it was cancelled last year (patient not clear why; thinks he was admitted to the hospital). He was admitted with 1 episode of BRBPR and abdominal pain. A CT was negative, and his hct remains normal. He has had no emesis, and remains afebrile without chest pain. He has chronic SOB from obesity and EDIL; he uses a CPAP. He has a hx of CAD and CJHF (but TTE earlier this year was mild). At home he was on daily ASA but no other blood thinner. He has no family hx of CRC or polyps. Past History Past Medical History: acute DC, CAD, COPD, GERD, hypertension, other (chronic resp failure, sleep apnea on home ventilator at night,psoriasis, morbid obesity) Past Surgical History: cholecystectomy, cataract removal, tonsillectomy Social history: single, full code. denies: smoking, alcohol abuse, IV drug use Family history: CAD, cancer Medications and Allergies Allergies Allergy/AdvReac Type Severity Reaction Status Date / Time acetaminophen Allergy Unknown Verified 04/19/17 13:21 doxycycline Allergy Unknown Verified 04/19/17 13:21 ibuprofen Allergy Unknown Verified 04/19/17 13:21 orange juice Allergy Unknown Verified 04/19/17 13:21 peppermint Allergy Unknown Verified 04/19/17 13:21 scallops Allergy Unknown Verified 04/19/17 13:21 shrimp Allergy Unknown Verified 04/19/17 13:21 Home Medications Medication Instructions Recorded Confirmed Last Taken Type Aspirin 81 mg PO QDAY #30 tab.chew 10/25/16 06/29/17 06/29/17 Rx AtorvaSTATin [Lipitor] 40 mg PO DAILY #30 tablet 10/25/16 06/29/17 06/29/17 Rx Loratadine [Claritin] 10 mg PO DAILY #0 10/25/16 06/29/17 06/29/17 History ALBUTEROL Inhaler [ProAir HFA 2 puff IH Q4H PRN 04/19/17 06/29/17 06/29/17 History Inhaler] Carvedilol [Coreg] 6.25 mg PO BID #60 tablet 04/27/17 06/29/17 06/29/17 Rx Dexamethasone Sod Phosphate 3 drops OP Q4H 06/05/17 06/29/17 06/29/17 History [Dexamethasone Sodium Phosphate 0.1%] Ketoconazole 1 applic TP BID 06/05/17 06/29/17 06/29/17 History Losartan [Cozaar] 50 mg PO QDAY 06/05/17 06/29/17 06/29/17 History Metoprolol [Lopressor TAB] 25 mg PO DAILY 06/05/17 06/29/17 06/29/17 History Omeprazole 20 mg PO DAILY 06/05/17 06/29/17 06/29/17 History Triamcinolone 0.1% [Kenalog 0.1% 1 applic TP TID 06/05/17 06/29/17 06/29/17 History CREAM] amLODIPine [Norvasc] 10 mg PO DAILY 06/05/17 06/29/17 06/29/17 History predniSONE [Deltasone] 10 mg PO QDAY 06/05/17 06/29/17 06/29/17 History traMADol [Ultram 50 MG tab] 50 mg PO TID PRN #0 06/05/17 06/29/17 06/29/17 History ISOSORBIDE MONOnitrate [Imdur ER] 30 mg PO QDAY 06/29/17 06/29/17 06/29/17 History Active Meds: Active Medications Albuterol (Proventil) 2.5 mg IH Q4HRT PRN PRN Reason: Shortness Of Breath Albuterol/Ipratropium (Duoneb *Not For Prn Use*) 1 ampul IH Q6HRT [facility] Last Admin: 06/30/17 15:07 Dose: Not Given Amlodipine Besylate (Norvasc) 10 mg PO DAILY [facility] Last Admin: 06/30/17 10:00 Dose: Not Given Atorvastatin Calcium (Lipitor) 40 mg PO DAILY [facility] Last Admin: 06/30/17 10:00 Dose: Not Given Bisacodyl (Dulcolax) 10 mg SC QDAY PRN PRN Reason: Constipation unrelieved by MOM Dextrose/Sodium Chloride (D5/0.45ns) 1,000 mls @ 75 mls/hr IV DIRECT [facility] Last Admin: 06/30/17 00:09 Dose: 75 mls/hr Isosorbide Mononitrate (Imdur) 30 mg PO QDAY [facility] Last Admin: 06/30/17 10:00 Dose: Not Given Ketoconazole (Nizoral) 1 applic TP BID [facility] Last Admin: 06/30/17 09:20 Dose: 1 applic Loratadine (Claritin) 10 mg PO DAILY [facility] Last Admin: 06/30/17 10:00 Dose: Not Given Losartan Potassium (Cozaar) 50 mg PO QDAY [facility] Last Admin: 06/30/17 10:00 Dose: Not Given Magnesium Hydroxide (Milk Of Magnesia) 30 ml PO Q4H PRN PRN Reason: Constipation Metoprolol Tartrate (Lopressor) 25 mg PO DAILY [facility] Last Admin: 06/30/17 10:00 Dose: Not Given Miscellaneous Medication (Dexamethasone Sod Phosphate [Dexamethasone Sodium Phosphate 0.1%]) 3 drops OP Q4H [facility] Morphine Sulfate (Morphine) 2 mg IV Q4H PRN PRN Reason: Pain, Moderate (4-6) Ondansetron HCl (Zofran) 4 mg IV Q6H PRN PRN Reason: nausea or vomiting Pantoprazole Sodium (Protonix) 40 mg IV BID [facility] Last Admin: 06/30/17 09:15 Dose: 40 mg Polyethylene Glycol/Electrolytes (Golytely) 4,000 ml PO ONCE ONE Stop: 06/30/17 18:58 Prednisone (Deltasone) 10 mg PO QDAY [facility] Last Admin: 06/30/17 10:00 Dose: Not Given Tramadol HCl (Ultram) 50 mg PO TID PRN PRN Reason: Pain Triamcinolone Acetonide (Kenalog) 1 applic TP TID [facility] Last Admin: 06/30/17 14:44 Dose: 1 applic Review of Systems - Review of Systems All systems: negative (as noted in the HPI) Exam - Constitutional Vital Signs: Temp Pulse Resp BP Pulse Ox 98.2 F 63 20 134/77 100 06/30/17 12:35 06/30/17 12:35 06/30/17 12:35 06/30/17 12:35 06/30/17 12:35 General appearance: no acute distress, other (Morbid obesity) - EENT Eyes: PERRL, EOM intact ENT: hearing intact, clear oral mucosa, poor dentition - Neck Neck: supple - Respiratory Respiratory effort: normal Respiratory: bilateral: CTA - Cardiovascular Rhythm: regular Heart Sounds: Present: S1 & S2 - Gastrointestinal General gastrointestinal: Present: soft, non-tender, non-distended - Integumentary Integumentary: Present: clear, warm, dry - Neurologic Neurological: alert and oriented x3 - Labs CBC & Chem 7: 06/30/17 16:10 06/30/17 03:34 Lab Results: Laboratory Results - last 24 hr 06/30/17 06/30/17 06/30/17 03:34 03:34 10:23 WBC 8.5 RBC 4.15 Hgb 12.1 13.0 Hct 37.6 39.0 MCV 91 MCH 29 MCHC 32 RDW 14.9 Plt Count 212 Lymph % (Auto) 31.4 [place] % (Auto) 6.4 Eos % (Auto) 2.7 Baso % (Auto) 2.1 H Lymph # 2.7 [place] # 0.5 Eos # 0.2 Baso # 0.2 H Seg Neutrophils % 57.4 Seg Neutrophils # 4.9 Sodium 142 Potassium 3.7 Chloride 104.2 Carbon Dioxide 29 Anion Gap 13 BUN 11 Creatinine 0.7 L Estimated GFR > 60 BUN/Creatinine Ratio 16 Glucose 88 Calcium 8.2 L 06/30/17 16:10 WBC RBC Hgb 12.9 Hct 40.1 MCV MCH MCHC RDW Plt Count Lymph % (Auto) [place] % (Auto) Eos % (Auto) Baso % (Auto) Lymph # [place] # Eos # Baso # Seg Neutrophils % Seg Neutrophils # Sodium Potassium Chloride Carbon Dioxide Anion Gap BUN Creatinine Estimated GFR BUN/Creatinine Ratio Glucose Calcium Assessment and Plan - Patient Problems (1) GI bleed Current Visit: Yes Status: Acute Qualifiers: GI bleed type/associated pathology: G Gastritis type: G Plan to address problem: - Mild bleeding, but patient due for colonoscopy. - Given severe comorbids, safer to perform as an inpatient; will schedule. - Continue to hold ASA; no need for serial H/H at this point.
[2017-06-30] MEDS ORDERED: GOLYTELY PO ONE (20:00)
[2017-07-01] MEDS: KENALOG TP SCH ×2 (02:08→08:06)
[2017-07-01] MEDS: NIZORAL TP SCH ×2 (02:09→09:15)
[2017-07-01] MEDS: PROTONIX IV SCH ×2 (02:10→09:16)
[2017-07-01] MEDS: DUONEB *Not for PRN Use IH SCH ×3 (02:45→13:42)
[2017-07-01 05:38] LABS: Mean Corpuscular HGB Conc 33 % (32-34); Mean Corpuscular Hemoglobin 30 pg (28-32); Mean Corpuscular Volume 91 fl (84-94); Platelet Count 195 K/mm3 (140-440); Red Blood Count 4.42 M/mm3 (3.65-5.03); Red Cell Distribution Width 14.7 % (13.2-15.2); White Blood Count 8.5 K/mm3 (4.5-11.0)
[2017-07-01 06:06] LABS: Anion Gap 14 mmol/L; BUN/Creatinine Ratio 13; Blood Urea Nitrogen 9 mg/dL (9-20); Calcium 8.6 mg/dL (8.4-10.2); Carbon Dioxide 30 mmol/L (22-30); Chloride 101.6 mmol/L (98-107); Glucose 92 mg/dL (75-100); Potassium 3.7 mmol/L (3.6-5.0); Sodium 142 mmol/L (137-145)
[2017-07-01] MEDS: D5/0.45NS 1,000 ML IV SCH (08:10)
[2017-07-01] MEDS ORDERED: WATER FOR IRRIG STERILE IR ONE (08:21)
[2017-07-01] MEDS ORDERED: WATER FOR IRRIG STERILE ONE (08:22)
[2017-07-01] MEDS: DELTASONE PO SCH (10:00)
[2017-07-01] MEDS: LOPRESSOR PO SCH (10:00)
[2017-07-01] MEDS: COZAAR PO SCH (10:00)
[2017-07-01] MEDS: NORVASC PO SCH (10:00)
[2017-07-01] MEDS: CLARITIN PO SCH (10:00)
[2017-07-01] MEDS: IMDUR PO SCH (10:00)
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
[2017-07-01] MEDS ORDERED: NACL 0.9% 1000 ML 1,000 ML ONE (12:20)
--- NOTE | 2017-07-01 13:02 | Discharge Summary ---
Providers - Providers Date of Admission: 06/29/17 22:20 Attending physician: AYAAN AMAYA MD Primary care physician: ELAN HENDRICKSON Hospitalization Reason for admission: Rectal bleed Condition: Stable Hospital course: Patient is 66-year-old with hypertension, coronary artery disease, status post stents, chronic respiratory failure, on home vent at night, COPD, sleep apnea. He presents with one episode of bright red blood per rectum. Patient states he was in his usual state of health when he had a bowel movement and had bright red blood mixed with stool. This happened just once in morning .He denies any nausea or vomiting. He complains of vague abdominal pain 6 out of 10 mid abdomen, with no radiation. This pain is now resolved. He denies any fever. In Emergency Department, initial hemoglobin is 12.6 He has been on Aspirin for coronary artery disease. This has been discontinued and patient will be admitted for further evaluation. Acute GI bleed with bright red blood per rectum 1 episode. secondary to Hemorrhoids * no further bleeding noted. will discontinue IV fluids in setting of chronic lymphedema. Initial hemoglobin was 12.6 and repeat hemoglobin stable at 12.2. * Patient preceeded to Have colonoscopy with revealed * 3mm transverse polyp, cold snare * Sigmoid tics, mild * Grade II Internal Hemorrhoids * Pathology was obtained and recommended to follow up with GI for * Repeat colonoscopy based on colon polyp pathology. 2. OK to d/c home today; suspect bleeding was from hemorrhoids and not diverticular disease. 3. OK to resume home ASA today.) Coronary artery disease status post cornary stent placement. * He is currently stable. No chest pain. Restarted aspirin Following colonoscopy COPD. This is stable, no acute exacerbation of shortness of breath. Chronic respiratory failure. Patient states he is on a BIPAP at home at night. Also has home Oxygen for use when needed. Sleep apnea. says he uses home Triology ventilator at night. Hypertension. Blood pressure controlled. Resume home meds. Psoriasis. Continue prednisone. GERD. continue PPI Morbid obesity. EXTENSIVE COUNSELLING ABOUT WEIGHTLOSS PROVIDED 15 mins Chronic Lymphedema * Lymphedema therapy elevation recommended. Disposition: DC/[place]-[address] [facility] Time spent for discharge: 35 mins Core Measure Documentation - Palliative Care Palliative Care/ Comfort Measures: Not Applicable - Core Measures Any of the following diagnoses?: none - VTE Discharge Requirements Deep Vein Thrombosis/Pulmonary Embolism Present on Admission: No Exam - Physical Exam Narrative exam: VITAL SIGNS: Reviewed. GENERAL: The patient appeared well nourished and normally developed. A morbidly obese Vital signs as documented. HEAD: No signs of head trauma. EYES: Pupils are equal. Extraocular motions intact. EARS: Hearing grossly intact. MOUTH: Oropharynx is normal. NECK: No adenopathy, no JVD. CHEST: Chest with clear breath sounds bilaterally. No wheezes, rales, or rhonchi. CARDIAC: Regular rate and rhythm. S1 and S2, without murmurs, gallops, or rubs. VASCULAR: +1 pitting edema chronically. Peripheral pulses normal and equal in all extremities. ABDOMEN: Soft, without detectable tenderness. No sign of distention. No rebound or guarding, and no masses palpated. Bowel Sounds normal. MUSCULOSKELETAL: Good range of motion of all major joints. Extremities without clubbing, cyanosis bilaterally plus edema. NEUROLOGIC EXAM: Alert and oriented x 3. No focal sensory or strength deficits. Speech normal. Follows commands. PSYCHIATRIC: Mood normal. SKIN: No rash or lesions. - Constitutional Vitals: Temp Pulse Resp BP Pulse Ox 98.9 F 72 13 137/76 95 07/01/17 12:39 07/01/17 12:39 07/01/17 12:39 07/01/17 12:39 07/01/17 12:39 Plan Activity: advance as tolerated, fall precautions Diet: low fat, low salt Special Instructions: record daily BP diary, physical therapy (evaluate for lymhedema therapy) Follow up with: ELAN HENDRICKSON MD [Primary Care Provider] - 3-5 Days CINTHYA MARTINEZ MD [Staff Physician] - 7 Days Forms: Accompanied Note
[2017-07-01] MEDS ORDERED: XYLOCAINE MPF 2% ONE (13:30)
[2017-07-01] MEDS ORDERED: DIPRIVAN 10 MG/ML IV ONE ×2 (13:35)
[2017-07-01] MEDS ORDERED: XYLOCAINE 2% INFILTRATI ONE (13:35)
[2017-07-01] MEDS ORDERED: AMIDATE IV ONE (13:37)
--- NOTE | 2017-07-01 13:56 | Post Operative Note ---
Pre-op diagnosis: Rectal bleed Post-op diagnosis: other (Hemorrhoids, colon polyp, tics) Findings: 1. 3mm transverse polyp, cold snare 2. Sigmoid tics, mild 3. Grade II Internal Hemorrhoids Procedure: Colonoscopy with cold snare Anesthesia: MAC Surgeon: CINTHYA MARTINEZ Estimated blood loss: minimal Pathology: list (1. Transverse colon polyp) Specimen disposition: to lab Condition: stable Disposition: floor (Recs: 1. Repeat colonoscopy based on colon polyp pathology. 2. OK to d/c home today; suspect bleeding was from hemorrhoids and not diverticular disease. 3. OK to resume home ASA today.)
[2017-07-01 14:18] VITALS: BP 174/91
--- NOTE | 2017-07-01 14:26 | Post Anesthesia Evaluation ---
- Post Anesthesia Evaluation Patient Participated: Yes Airway Patent: Yes Stable Respiratory Function: Yes Nausea/Vomiting: No Temp > 96.8F: Yes Pain Manageable: Yes Adequeate Hydration: Yes Anesthesia Complications: No Block Receding Appropriately: Not Applicable Patient on Ventilator: No
--- NOTE | 2017-07-01 14:36 | Anesthesia Day of Surgery ---
Anesthesia Day of Surgery - Day of Surgery Patient Examined: Yes Patient H&P Reviewed: Yes Patient is NPO: Yes Beta Blockers: No (held per floor )
--- NOTE | 2017-07-01 15:05 | Operative Report ---
PROCEDURE PERFORMED: Colonoscopy with cold snare polypectomy. PREOPERATIVE DIAGNOSIS: Rectal hemorrhage. POSTOPERATIVE DIAGNOSES: Colon polyp, diverticulosis, hemorrhoids. ENDOSCOPIST: Memo Rubalcava MD INSTRUMENT: [employer] video endoscope. MEDICATIONS: MAC anesthesia by Anesthesia Services. COMPLICATIONS: No apparent complications. ESTIMATED BLOOD LOSS: Minimal. SPECIMENS: Transverse colon polyp. IMPLANTS: None. YARN FINISHER: None. CONDITION AT COMPLETION: Stable. TECHNIQUE: The patient was informed of the risks and benefits of the procedure. He signed the informed consent to proceed. He was placed in left lateral decubitus position. The above sedative medications were given. His vital signs remained stable throughout the procedure. The instrument was advanced from anus to the cecum under direct visualization. The cecum was identified by the appendiceal orifice and the ileocecal valve. At that point, the bowel was insufflated and the endoscope was slowly withdrawn. The quality of preparation was fair. There was some liquid brown stool throughout the colon. FINDINGS: 1. A 3 mm polyp in the transverse colon, sessile, removed with cold snare polypectomy. 2. Sigmoid diverticulosis, mild. 3. Grade 2 internal hemorrhoids. 4. Fair preparation of the colon with moderate amount of liquid brown stool that was suctioned as possible. RECOMMENDATIONS: 1. Repeat colonoscopy based on colon polyp pathology. 2. Okay to discharge the patient home today; I suspect the bleeding was from hemorrhoids and not from diverticular disease. 3. Okay to resume home aspirin today. JOB# [id number] AMBREEN/NTS
[2017-07-02] MEDS ORDERED: PROTONIX PO SCH (10:00)
== END 2017-07-01 15:40 | disposition home or self-care (01) | DRG 394 ==
LOC: ED 16:21 → 3A 22:20 → CC2 22:39 → 2B-ACE 07-01 12:47
PROVIDERS: ADMIT Internal Medicine; ATTEND Internal Medicine
PROC: 5A09457 Assistance with Respiratory Ventilation, 24-96 Consecutive Hours, Continuous Positive Airway Pressure (ICD-10-PCS; 2017-06-29)
PROC: 0DBL8ZZ Excision of Transverse Colon, Via Natural or Artificial Opening Endoscopic (ICD-10-PCS; principal; 2017-07-01)
DX: K64.8 Other hemorrhoids (principal); Z68.43 Body mass index [BMI] 50.0-59.9, adult; J96.10 Chronic respiratory failure, unspecified whether with hypoxia or hypercapnia; I10 Essential (primary) hypertension; I25.10 Atherosclerotic heart disease of native coronary artery without angina pectoris; J44.9 Chronic obstructive pulmonary disease, unspecified; L40.9 Psoriasis, unspecified; G47.33 Obstructive sleep apnea (adult) (pediatric); K63.5 Polyp of colon; K57.90 Diverticulosis of intestine, part unspecified, without perforation or abscess without bleeding; K21.9 Gastro-esophageal reflux disease without esophagitis; E66.01 Morbid (severe) obesity due to excess calories; I89.0 Lymphedema, not elsewhere classified; M19.90 Unspecified osteoarthritis, unspecified site; Z90.49 Acquired absence of other specified parts of digestive tract; Z79.82 Long term (current) use of aspirin; Z79.899 Other long term (current) drug therapy; Z88.1 Allergy status to other antibiotic agents; Z91.018 Allergy to other foods; I25.2 Old myocardial infarction; Z71.3 Dietary counseling and surveillance; Z99.81 Dependence on supplemental oxygen; Z95.5 Presence of coronary angioplasty implant and graft; Z82.49 Family history of ischemic heart disease and other diseases of the circulatory system; Z80.9 Family history of malignant neoplasm, unspecified; Z98.49 Cataract extraction status, unspecified eye
CPT/HCPCS: 36415; 74177; 80048; 80053; 82271; 83690; 85014; 85018; 85025; 85027; 85610; 85730; 86850; 86900; 86901; 88305; 93005; 93010; 94640; 94660; 94760; A9270-GY; C9113; J2704; J7030; J7512; Q9967